=== PATIENT | female | born 1960 | race Caucasian/White ===

== ENCOUNTER 2025-04-30 10:02 | Emergency (ER) | payer OTHER, SELFPAY ==
--- NOTE | 2025-04-30 10:14 | ED_ITS ---
HPI - URI/Sore Throat General Chief Complaint: Upper Respiratory Infection Stated Complaint: Cough Source: patient Mode of arrival: ambulatory Limitations: no limitations History of Present Illness HPI Narrative: Patient is a 64-year-old female who presents to the clinic with a cough and chills x 4 days. She was recently on vacation in [place] and returned yesterday. She has not been taking anything [id number]. Denies any nausea, vomiting, diarrhea, fevers, shortness of breath, or chest pain. Related Data Home Medications ?Medication ?Instructions ?Recorded ?Confirmed ?Last Taken ?Type citalopram 20 mg tablet mg 04/30/25 Unknown History venlafaxine 75 mg capsule,extended mg PO 04/30/25 Unknown History release 24 hr Allergies Allergy/AdvReac Type Severity Reaction Status Date / Time No Known Allergies Allergy Verified 04/30/25 10:09 Review of Systems Review of Systems: CONSTITUTIONAL: Denies body aches, fever, or sweats. Reports chills. EYES: Denies visual changes, redness, or discharge. ENT: Denies rhinorrhea, congestion, sore throat, or otalgia. CARDIOVASCULAR: Denies chest pain, palpitations, or edema. RESPIRATORY: Reports cough. Denies dyspnea. GASTROINTESTINAL: Denies abdominal pain, nausea, vomiting, or diarrhea. GENITOURINARY: Denies dysuria or hematuria. SKIN: Denies rash, itching, or wounds. MUSCULOSKELETAL: Denies back pain, joint pain, or myalgia. NEUROLOGIC: Denies headache, numbness, tingling, or weakness. PSYCH: Denies depression or anxiety. All systems reviewed & are unremarkable except as noted in HPI and below PMFSH Comments At time of signature, I have reviewed and agree with nursing past medical, surgical, social and family history unless otherwise noted. Please see nursing chart for further information. There is no relevant family history pertinent to the presenting complaint. Exam Narrative: GENERAL: Well-appearing, well-nourished, and in no acute distress. EYES: EOMI. No redness or drainage. Conjunctivae normal. ENT: Mucous membranes pink and moist. Nares clear. No rhinorrhea. TMs normal bilaterally. No Throat Erythema without tonsillar exudate, uvula midline. No nasal congestion noted. NECK: Normal AROM. Supple. No lymphadenopathy. CHEST: No respiratory distress. Clear to auscultation. HEART: Regular rate and rhythm. No murmur appreciated. Normal peripheral pulses. ABDOMEN: Soft, nontender, nondistended, normal active bowel sounds. SKIN: Warm, dry, no rash. Capillary refill normal. Normal skin turgor. NEURO: No focal deficits. Alert and oriented x3. Gait steady. PSYCH: Normal affect. No signs of depression or anxiety. Course Course Level of Care: Express Care Visit Vital Signs Vital signs: Vital Signs Temperature 97.5 F L 04/30/25 10:15 Pulse Rate 88 04/30/25 10:15 Respiratory Rate 18 04/30/25 10:15 Blood Pressure 129/92 H 04/30/25 10:15 Pulse Oximetry 97 04/30/25 10:15 Oxygen Delivery Room Air 04/30/25 10:15 Temperature 97.5 F L 04/30/25 10:15 Pulse Rate 88 04/30/25 10:15 Respiratory Rate 18 04/30/25 10:15 Blood Pressure 129/92 H 04/30/25 10:15 Pulse Oximetry 97 04/30/25 10:15 Oxygen Delivery Room Air 04/30/25 10:15 Reviewed. MDM - URI/Sore Throat MDM Narrative Medical decision making narrative: Discussed physical exam findings. Flu negative. Covid positive. Advised supportive measures and signs/symptoms to go to the ER. Pt is appropriate for outpt treatment and follow up. Differential Diagnosis Differential diagnosis: Likely upper respiratory infection, viral infection, influenza and other (COVID) Lab Data Labs: Lab Results 04/30/25 Range/Units 10:46 POC Influenza A Ag Negative (Negative) POC Influenza B Ag Negative (Negative) POC SARS CoV-2 Ag Positive (Negative) Critical Care Time Critical Care Time Critical Care Time: No Discharge Plan Discharge Clinical Impression: COVID Patient Disposition: Home Condition: Stable Instructions: COVID-19 (Coronavirus Disease 2019) (ED) Additional Instructions: Your rapid COVID test was positive today. The following updated recommendations have been made by the CDC and local Health Departments, regarding COVID-19: - When people get sick with a respiratory virus, they stay home and away from others. - Return to normal activities when, for at least 24 hours, symptoms are improving overall, and if a fever was present, it has been gone without use of a fever-reducing medication. - Once people resume normal activities, they are encouraged to take additional prevention strategies for the next 5 days to curb disease spread, such as taking more steps for opening machine cleaner air, enhancing hygiene practices, wearing a well-fitting mask, keeping a distance from others, and/or getting tested for respiratory viruses. - Enhanced precautions are especially important to protect those most at risk for severe illness, including those over 65 and people with weakened immune systems. Rest, stay hydrated. Tylenol and ibuprofen every 8 hours as needed Flonase/nasal spray, Zyrtec, cough syrup cold/flu medications for symptoms as needed Call [facility] on Friday and ask for Employee [facility] - [phone] Follow up with your primary care provider, call to schedule an appointment. Go to the ER for worsening symptoms or concerns. Patient Language: Bhutanese Prescriptions: No Action venlafaxine 75 mg capsule,extended release 24hr PO citalopram 20 mg tablet Follow-up/Referrals: Gissell,JAMIL Porter [Primary Care Provider] - Stand Alone Forms: Work/School Release IP Time of Disposition: 10:48
[2025-04-30 10:15] VITALS: BP 129/92; PULSE 88; RESP 18; TEMP 36.4; O2SAT 97
[2025-04-30 10:48] LABS: EDCOVIDSCREEN Positive (Negative); EDINFLUASCREEN Negative (Negative); EDINFLUBSCREEN Negative (Negative)
== END 2025-04-30 10:50 | disposition home or self-care (01) ==
PROVIDERS: PCP Physician Assistant
DX: U07.1 COVID-19 (principal)
CPT/HCPCS: 87426; 87804; 99202; G0463

== ENCOUNTER 2025-06-20 06:57 | Outpatient (CLI) | payer OTHER, SELFPAY ==
--- OUTSIDE RECORDS SUMMARY | 2025-06-20 07:04 | XMS_ITS | Clinical Summary ---
Author Organization [facility] Address [address] [place] [address] Care Team Providers Care Information Technology Program Manager Name Role Phone Arpita Borrero PA-C Primary Care Provider [phone] Allergies Active Allergy Reactions Criticality Noted Date Comments Codeine Fatigue 01/27/2019 Blood pressure drops too low Morphine And Codeine Unknown 05/21/2012 Vancomycin Hcl Hives,Rash Low 05/18/2012 Medications citalopram 20 MG tablet Take by mouth daily. 6 Active venlafaxine XR (EFFEXOR-XR) 75 MG 24 hr capsule Take 1 capsule (75 mg total) by mouth daily. 3 Active albuterol sulfate HFA (PROAIR HFA) 108 (90 Base) MCG/ACT inhalerIndicatio ns:Viral upper respiratory tract infection Inhale 2 puffs into the lungs every 6 (six) hours as needed for Wheezing or Shortness of breath. May sub any albuterol inhaler 18 g 5 Active Active Problems Problem Noted Date Diagnosed Date Hx of chronic ulcerative colitis 09/09/2023 Family history of colon cancer 09/09/2023 History of colitis 09/08/2023 Family history of malignant neoplasm of colon Resolved Problems Problem Noted Date Diagnosed Date Resolved Date No known health problems 09/13/2021 Epigastric pain 02/26/2021 09/13/2021 Anxiety 05/16/2013 09/13/2021 Arthritis of knee 05/16/2013 09/13/2021 Overview (01/30/2019): following with rheumatology Mitral valve prolapse 05/16/20132020 Seronegative rheumatoid arth ritis ([facility]) 11/27/2012 09/13/2021 Hypertension 05/21/2012 09/13/2021 Overview (01/30/2019): diet controlled Encounters Date Type Department Care Team Description 04/30/2025 Scan [facility] Scanned, [facility] from Last 3 Months Immunizations Immunization Administration Dates Next Due Flucelvax 6 Months+ (Prefill ed Syringe) 08/19/2019 Influenza (Generic) 08/01/2021,08/21/2020,2013 Influenza Adult (Generic) 08/15/2023,05/2022,08/19/2019,2011,08/07/2011,09/24/2010,08/27/2007,1 11/19/2005,09/20/2003 PFIZER COVID-19 (ORIGINAL FORMULATION, PURPLE CAP) mRNA, LNP-S, PF, 30 MCG/0.3 ML DOSE 11/10/2020,10/19/2020 Td 11/12/1999 Tdap (Adacel) 09/13/2021 Tdap (Generic) 10/19/2010 Family History Medical History Relation Comments Cancer Brother 1 thymic carcinoma Hyperlipidemia Brother 1 Hypertension Brother 1 No Known Problems Daughter 1 No Known Problems Daughter 2 Heart Disease Father Stroke Father Cancer Mother colon Stroke Mother Cancer Sister 1 gastrointestinal cancer Hypertension Sister 1 No Known Problems Sister 2 No Known Problems Sister 3 No Known Problems Sister 4 Relation Status Comments Brother 1 Brother 2 Alive Brother 3 Alive Brother 4 Alive Daughter 1 Alive Daughter 2 Alive Father Maternal Grandfather Maternal Grandmother Mother colon cancer Paternal Grandfather Paternal Grandmother Sister 1 Sister 2 Alive Sister 3 Alive Sister 4 Alive Social History Tobacco Use Types Packs/Day Years Used Date Smoking Tobacco: Former Cigarettes 0.5 21 1 978 - 11/18/1998 Smokeless Tobacco: Never Tobacco Cessation:Counseling Given: Yes Alcohol Use Standard Drinks/Week Comments Yes 0 (1 standard drink = 0.6 oz pur e alcohol) 1x q 2 wks, 6 beverages AUDIT-C Answer Date Recorded Frequency of Alcohol Consumption Monthly or less 02/26/2021 Average Number of Drinks 5 or 6 021 Frequency of Binge Drinking Monthly 02/02 PHQ-2 Answer Date Recorded Patient Health Questionnaire-2 Score 0 07/15/2023 Comments No Sex and Gender Information Value Date Recorded Sex Assigned at Not on file Legal Sex Female 5:34 PM CDT Gender Identity Not on file Sexual Orientation Not on file Last Filed Vital Signs Vital Sign Reading Time Taken Comments Blood Pressure 129/84 11/09/2024 11:40 AM [employer] [facility] Pulse 98 11/09/2024 11:24 AM [employer] Temperature 37 C (98.6 F) 11/09/2024 11:24 AM [facility] Respiratory Rate 20 11/09/2024 11:24 AM [facility] Oxygen Saturation 96% 11/09/2024 11:24 AM [facility] Inhaled Oxygen Concentration - - Weight 87.1 kg (192 lb) 11/09/2024 11:24 AM [facility] Height 165.1 cm (5' 5) 11/09/2024 11:24 AM [facility] Body Mass Index 31.95 11/09/2024 11:24 AM [employer] [facility] Plan of Treatment Health Maintenance Due Date Last Done Comments Cervical Cancer Screening Pa p Smear (Age 30 to 64) Every 3 Years 1961 Annual Physical 1964 Hepatitis C 1979 Pneumococcal Vaccine: 50+ Years (1 of 1 - PCV) 2011 Zoster Vaccines (1 of 2) 2011 COVID-19 Vaccine (3 - 2023-2 5 season) 2024 11/10/2020, 10/19/2020 PHQ-2 (Physician [place]) 11/03/2024 07/15/2023 Mammogram Screening 03/14/2025 03/14/2023, 11/17/2019, 10/30/2018 Cervical Cancer Screening Pa p with HPV Testing (Age 30 to 64) Every 5 Years 10/18/2025 10/18/2020, 07/10/2017 Cervical Cancer Screening wi th HPV 10/18/2025 Colorectal Cancer Screening Colonoscopy (10 Years) 10/22/2028 10/22/2023, 10/22/2023, DTaP, Tdap and Td Vaccines ( 3 - Td or Tdap) 09/13/2031 09/13/2021, 10/19/2010, 11/12/1999 RSV Immunization or 60+ Years (1 - 1-dose 75+ series) 2036 Meningococcal B Vaccine Aged Out No l onger eligible based on patient's age to complete this topic Meningococcal Vaccine Aged Out No alcides taina eligible based on patient's age to complete this topic RSV Immunizations Under 20 Months Aged Out No longer eligible b ased on patient's age to complete this topic Procedures Procedure Name Priority Date/Time Associated Diagnosis Comments COLONOSCOPY Routine 10/22/2023 9:29 AM [facility] MG SCREENING W PEPITO MARTI DIGI Routine 03/14/2023 4:03 PM CDT Encounter for screening mammogram for malignant neoplasm of breast OUTSIDE CYTOPATH CERV/VAG INTERPRET (PAP) 10/18/2020 from Last 3 Months or Most Recently Relevant to Health Maintenance Results * MG SCREENING W PEPITO MARTI DIGI (03/14/2023 4:03 PM CDT) Anatomical Region Laterality Modality Breast Bilateral Mammography 03/14/2023 5:00 PM CDT Narrative 03/14/2023 5:01 PM CDT Examination: Digital screening mammogram with CAD. Clinical history: Asymptomatic patient presents for routine screening. Comparison: 11/17/2019, 10/30/2018, 08/15/2017, 07/18/2016. Technique: Bilateral digital mammograms. The exam was interpreted with the use of a computer-aided detection (CAD) system. Additional 3-D tomosynthesis images were acquired. Tissue density: The breast tissue contains scattered fibroglandular densities. Findings: The breast tissue contains scattered fibroglandular densities. Benign-appearing calcification noted. No suspicious mass, microcalcification or area of architectural distortion can be identified. From a mammographic standpoint, routine followup in one year would seem adequate. IMPRESSION: No suspicious change since the previous exams. Recommendation: 1: Routine Screening Bilateral in 1 Year Assessment: ACR BI-RADS 2 - BENIGN FINDING(S) Ordered By: ARTI MONTAÑO Interpreted By: Dameon Batres MD, 03/14/2023 5:00 PM us Arti Knobeloch DO MAMMO Final Resul t * PAP SMEAR WITH HPV (10/18/2020) 10/18/2020 us [facility] Scanned SCANNING Final Resu lt * Colonoscopy ( [facility]) Narrative [facility] TO EPIC CONVERSION - [facility] Documented hx of procedure Procedure Note Leo Hughes MD - 09/06/2018 Documented hx of procedure us Generic Conversion Md HUGH[facility] GI PROCEDURE ORDERABLES Final Result [facility] TO EPIC CONVERSION from Last 3 Months or Most Recently Relevant to Health Maintenance Insurance [email or web address] [facility] Care Teams Information Technology Program Manager Relationship Specialty Start Date End Date Arpita Borrero PA-C [address] [facility] [address] [place] [address] PCP - General PHYSICIAN CHAIN CARRIER 03/12/21
--- OUTSIDE RECORDS SUMMARY | 2025-06-20 07:04 | XMS_ITS | Encounter Summary ---
Author Organization [facility] Address [address] [place] [address] Care Team Providers Care Flake Drier Name Role Phone Oral Spain MD Primary Care Provider [phone] Arpita Borrero PA-C Primary Care Provider [phone] Encounter Details Date Type Department Care Team (Late st Contact Info) Description 02/25/[address] [facility] Conversion Oral Spain MD [id number] [place] [address] Social History Tobacco Use Types Packs/Day Years Used Date Smoking Tobacco: Never Assessed Comments Unknown Sex and Gender Information Value Date Recorded Sex Assigned at Not on file Legal Sex Female 5:34 PM CDT Gender Identity Not on file Sexual Orientation Not on file documented as of this encounter Miscellaneous Notes * Letter - Oral Spain MD - 02/25/2017 12:00 AM CDT Feb 25, 2017 Janki Cuevas [address] [place] [address] Dear Janki Cuevas, Thank you for choosing [facility] for your health care needs. We appreciate the opportunity to help you maintain your well being. You recently had health fair testing. Your results came back normal. 10 year cardiac risk is less than 2 percent which is good. Please remember to follow up as discussed at your last appointment. If you have any questions please feel free to call the office at [phone], Option #3 or Option #1 to make an appointment to discuss these results. Respectfully Yours, Electronically Signed by: Oral Spain MD Cc: Patients Medical Record T PSYCHOLOGIST documented in this encounter Plan of Treatment Not on file documented as of this encounter Visit Diagnoses Not on filedocumented in this encounter Additional Health Concerns Infection Onset Date Last Indicated Resolved Time COVID-19 Rule Out 10/06/2023 07/07/2023 10/08/2023 9:02 AM SPORT PSYCHOLOGIST COVID-19 Rule Out 11/09/2024 11/09/2024 11/11/2024 10:37 AM SPORT PSYCHOLOGIST documented as of this encounter Care Teams Flake Drier Relationship Specialty Start Date End Date Oral Spain MD [address] [place] [address] PCP - General 05/29/12 03/11/21 Arpita Borrero PAEmeliC [address] [facility] [address] [place] [address] PCP - General PHYSICIAN BUSINESS CONTINUITY PLANNING DIRECTOR 03/12/21 documented as of this encounter
--- OUTSIDE RECORDS SUMMARY | 2025-06-20 07:04 | XMS_ITS | Encounter Summary ---
Author Organization [facility] Address [address] [place] [address] Care Team Providers Care Teacher Of The Visually Impaired Name Role Phone Oral pSain MD Primary Care Provider [phone] Oral Spain MD Primary Care Provider [phone] Arpita Borrero PA-C Primary Care Provider [phone] Encounter Details Date Type Department Care Team (Late st Contact Info) Description 08/10/2003 Abstract [facility] Conversion , Generic ConversionMD Social History Tobacco Use Types Packs/Day Years Used Date Smoking Tobacco: Never Assessed Comments Unknown Sex and Gender Information Value Date Recorded Sex Assigned at Not on file Legal Sex Female 5:34 PM CDT Gender Identity Not on file Sexual Orientation Not on file documented as of this encounter Plan of Treatment Not on file documented as of this encounter Visit Diagnoses Not on filedocumented in this encounter Additional Health Concerns Infection Onset Date Last Indicated Resolved Time COVID-19 Rule Out 10/06/2023 07/07/2023 10/08/2023 9:02 AM STUDENT EDUCATION SPECIALIST COVID-19 Rule Out 11/09/2024 11/09/2024 11/11/2024 10:37 AM STUDENT EDUCATION SPECIALIST documented as of this encounter Care Teams Teacher Of The Visually Impaired Relationship Specialty Start Date End Date Oral Spain MD [address] [place] [address] PCP - General 05/29/12 03/11/21 Oral Spain MD [address] [place] [address] PCP - General 05/28/12 05/28/12 Arpita Borrero, TYLORC [address] [facility] [address] [place] [address] PCP - General PHYSICIAN THEATRE PROGRAM DIRECTOR 03/12/21 documented as of this encounter
--- OUTSIDE RECORDS SUMMARY | 2025-06-20 07:04 | XMS_ITS | Encounter Summary ---
Author Organization [facility] Address [address] [place] [address] Care Team Providers Care Residential Door Unit Installer Name Role Phone Arpita Borrero PA-C Primary Care Provider [phone] Reason for Referral * Surgical (Routine) - Closed Specialty Diagnoses / Procedures Referred By Rosalio chaves Referred To Contact GENERAL SURGERY Diagnoses Hx of chronic ulcerative colitis Family history of colon cancer Procedures Case request operating room: COLONOSCOPY DIAGNOSTIC WITH/WITHOUT SPECIMEN BRUSH/WASH WITH POSSIBLE BIOPSY AND POSSIBLE POLYPECTOMY, EGD WITH BIOPSY Tim Thompson MD [address] [facility] [address] [place] [address] Phone: tel: fax: Referral ID Status Reason Start Date Expiration Date Visits Re quested Visits Authorized [id number] Closed 09/09/2023 09/09/2024 1 1 [employer] [employer] Encounter Details Date Type Department Care Team (Late st Contact Info) Description 09/09/2023 Prep for Procedure [facility] Medical [facility] General Surgery [address], [address] [place] [address] Tim Thompson MD [address] [facility] [address] [place] [address] Social History Tobacco Use Types Packs/Day Years Used Date Smoking Tobacco: Former Cigarettes 0.5 21 1 978 - 11/18/1998 Smokeless Tobacco: Never Alcohol Use Standard Drinks/Week Comments Yes 0 [...] as of this encounter Plan of Treatment Scheduled Orders Name Type Priority Associated Diagnoses Orde r Schedule Case request operating room: COLONOSCOPY DIAGNOSTIC WITH/WITHOUT SPECIMEN BRUSH/WASH WITH POSSIBLE BIOPSY AND POSSIBLE POLYPECTOMY, EGD WITH BIOPSY Case Request Routine Hx of chronic ulcerative colitis Family history of colon cancer Once for 1 Occurrences starting 09/09/2023 until 09/09/2023 documented as of this encounter Visit Diagnoses Diagnosis Hx of chronic ulcerative colitis- Primary Personal history of other diseases of digestive system Family history of colon cancer Family history of malignant neoplasm of gastrointestinal tract documented in this encounter Additional Health Concerns Infection Onset Date Last Indicated Resolved Time COVID-19 Rule Out 10/06/2023 07/07/2023 10/08/2023 9:02 AM KNOT PICKER CLOTH COVID-19 Rule Out 11/09/2024 11/09/2024 11/11/2024 10:37 AM KNOT PICKER CLOTH Assessment Noted Time PHQ-9 Depression Total Score: 0 09/13/20 21 9:27 AM KNOT PICKER CLOTH documented as of this encounter Care Teams Residential Door Unit Installer Relationship Specialty Start Date End Date Arpita Borrero PA-C [address] [address] PCP - General PHYSICIAN FASHION COORDINATOR 03/12/21 documented as of this encounter
[2025-06-20 07:35] LABS: Hematocrit 42.6 % (37.0-47.0); Hemoglobin 13.7 g/dL (12.0-15.0); Immature Granulocyte Percent A 0.2 % (0-0.5); Lymphocytes Absolute Auto 2.16 K/mm3 (0.9-3.2); Mean Corpuscular HGB Conc 32.2 g/dl (32-36); Mean Corpuscular Hemoglobin 29.9 pg (26-34); Mean Corpuscular Volume 93.0 fl (80-100); Nucleated Red Blood Cells Absolute Auto 0.000 K/mm3 (0.0-0.012); Nucleated Red Blood Cells Perc 0.0 % (0.0-0.2); Platelet Count Result 230 k/mm3 (150-375); Red Blood Count 4.58 M/mm3 (4.2-5.4); White Blood Count 8.2 K/mm3 (4.5-10.0)
[2025-06-20 07:50] LABS: Hemoglobin A1C 6.3 % (<5.7)
[2025-06-20 07:56] LABS: Alanine Aminotransferase 16 U/L (6-35); Albumin Level 4.1 g/dL (3.5-5.1); Alkaline Phosphatase 107 U/L (38-126); Anion Gap 6 mmol/L (4-12); Aspartate Amino Transferase 23 U/L (14-36); Bilirubin,Total 0.4 mg/dL (0.2-1.3); Blood Urea Nitrogen 16 mg/dL (7-17); Calcium 9.5 mg/dL (8.4-10.2); Carbon Dioxide 25 mmol/L (22-30); Chloride 108 mmol/L (98-107); Cholesterol 233 mg/dL (0-200); Estimated Glomerular Filt Rate > 60; Glucose 102 mg/dL (65-110); HDL Direct 63 mg/dL; Iron 98 ug/dL (37-170); Potassium 4.3 mmol/L (3.4-5.0); Sodium 139 mmol/L (137-145); Total Protein 7.6 g/dL (6.3-8.2); Triglycerides 135 mg/dL (<150)
[2025-06-20 08:07] LABS: Transferrin 266 mg/dL (206-381)
[2025-06-20 08:12] LABS: Percent Iron Saturation 26 % (20-50)
[2025-06-20 08:36] LABS: Thyroid Stimulating Hormone Reflex 4.730 uIU/mL (0.465-4.68)
[2025-06-20 08:40] LABS: Ferritin 33.60 ng/mL (11.1-264)
[2025-06-20 09:25] LABS: Free T4 Free Thyroxine Reflex 0.97 ng/dL (0.78-2.19)
[2025-06-20 12:53] LABS: Total Triiodothyronine (T3) 1.39 NG/ML (0.82-1.58)
[2025-06-25 13:08] LABS: Estradiol, Sensitive 10.1 pg/mL (.); Free Testosterone (Direct) 2.6 pg/mL (0.0-4.2)
== END 2025-06-20 06:58 | disposition home or self-care (01) ==
LOC: ANHLAB 07:02
PROVIDERS: PCP Physician Assistant; Visit Provider Advanced Practice Midwife
DX: N95.1 Menopausal and female climacteric states (principal); R53.83 Other fatigue; Z00.00 Encounter for general adult medical examination without abnormal findings
CPT/HCPCS: 36415; 80053; 80061; 82306; 82670; 82728; 83036; 83540; 83550; 84402; 84403; 84439; 84443; 84466; 84480; 85025